=== PATIENT | male | born 1965 | race African-American/Black ===

== ENCOUNTER 2018-03-01 15:10 | Emergency (ER) | payer MEDICARE, OTHER, MEDICAID ==
[2018-03-01] MEDS: HYDROCODONE/APAP (10/325) TAB PO (15:39)
== END 2018-03-01 16:21 | disposition home or self-care (01) ==
LOC: FTE 15:10
DX: M25.551 Pain in right hip (principal); M25.552 Pain in left hip; R51 Headache; I10 Essential (primary) hypertension; F17.210 Nicotine dependence, cigarettes, uncomplicated
CPT/HCPCS: 99283

== ENCOUNTER 2019-03-15 12:36 | Emergency (ER) | payer SELFPAY, OTHER, MEDICARE | END 2019-03-15 15:24 | disposition left against medical advice (07) | LOC: FTE 12:36 | DX: Z53.21 Procedure and treatment not carried out due to patient leaving prior to being seen by health care provider (principal) ==